=== PATIENT | female | born 1955 | race Caucasian/White ===

== ENCOUNTER 2017-09-05 08:40 | Observation (INO) | payer OTHER ==
[~2017-09-05] VITALS: Ht 157.5 cm; Wt 95.2 kg
[~2017-09-05 08:40] MED LIST: DYAZIDE 37.5-251 EA PO; INDERAL LA160 MG PO
[2017-09-05] MEDS ORDERED: HAIR, SKIN & N1 EACH PO (08:53)
--- NOTE | 2017-09-05 14:01 | NUR ---
09/05/17 1401 Yazmin Sierra 1341 EVEN AND UNLABORED. 1346 PT WOKE UP DENIES PAIN OR NAUSEA. REORIENTED TO PACU. 1358 O2 SAT 100%, O2 REMOVED.
--- NOTE | 2017-09-05 15:24 | NUR ---
PATIENT TO MEDICAL FLOOR FROM PACU AT ABOUT 1455. PATIENT HAD 50ML OF YELLOW COLOR EMESIS. PACU NURSE ADMINISTERED PHENERGAN. PATIENT UP TO BATHROOM WITH 1 PERS ASSIST. PATIENT REPORT BEING A LITTLE DIZZY UPON STANDING AND RESOLVED AFTERWARD. MEPILEX NOTED ON THE NECK THAT IS DRY.DRESSING IN THE LEFT INNER THIGH WITH SOME DRAINAGE. PATIENT DENIES NAUSEA AT THIS TIME AND REPORT DISCOMFORT IN THE THROAT. NO PAIN AT THIS TIME. IV SITE PATENT AND FLUID INFUSING WELL. HOB AT 45DEGREE. CALL LIGHT WITHIN REACH.
--- NOTE | 2017-09-05 16:31 | NUR ---
PATIENT RESTING IN BED. DENIES PAIN AT THIS TIME.NO NAUSEA. IV FLUID INFUSING NO APPARENT DISTRESS.
--- NOTE | 2017-09-05 16:45 | NUR ---
MED REC COMPLETE WITH SAFEWAY REFILL HISTORY.
--- NOTE | 2017-09-05 17:33 | NUR ---
PT IS RESTING IN BED SAFELY WITH CALLLIGHT IN REACH. PT STILL DOES NOT WANT TO EAT ANYTHING.
--- NOTE | 2017-09-05 18:02 | NUR ---
PATIENT REQUESTED PAIN MEDS FOR 5/10 THROAT PAIN. PATIENT WAS MEDICATED. PATIENT DENIES NAUSEA AT THIS TIME. PATIENT IS ABLE TO TAKE SOME JELLO AND JUICE. NO SWELLING IN THE NECK. NO NUMBNESS OR TINGLING.
--- NOTE | 2017-09-05 18:27 | NUR ---
PATIENT HAD DONE WELL THIS PM. BACK FROM SURGERY AT ABOUT 1500. HAD 50ML OF EMESIS ONCE, HAD PHENERGAN ONCE. PATIENT HAD BEEN UP TO BATHROOM ONCE. INCISION ON THE NECK WNL NO SWELLING, MEPILEX IN PLACE, NO DRAINAGE. DRESSING ON THE LEFT INNER THIGH COVERED WITH GAUZE AND HAD SOME DRAINAGE. IV SITE PATIENT AND D5 LR IS INFUSING AT 85ML/HR. VS WNL. REPORT THROAT PAIN AND WAS MEDICATED. DENIES ANY NUMBNESS OR TINGLING.
--- NOTE | 2017-09-05 18:34 | NUR ---
LAST POST OP VITALS TAKEN AND PT WALKED TO BATHROOM, VOIDED, AND RETURNED TO BED. PT NOW RESTING SAFELY WITH CALL LIGHT IN REACH
--- NOTE | 2017-09-05 20:03 | NUR ---
RECEIVED REPORT FROM DAY SHIFT RN. PATIENT IS RESTING IN BED VISITING WITH DAUGHTER. PATIENT DENIES ANY PAIN OR NAUSEA AT THIS TIME. CALL LIGHT IN REACH. NO FURTHER NEEDS NOTED.
--- NOTE | 2017-09-05 21:44 | NUR ---
PATIENT ASSESMENT COMPLETED. PATIENTS EVENING MEDICATIONS GIVEN PER ORDER. PATIENT IS RESTING IN BED VISITING WITH FAMILY. PATIENT IS SITTING UP AT A 45 DEGREE ANGLE IN BED. PATIENT RATES PAIN AT A 4/10. PATIENT DENIES THE NEED FOR ANY PAIN MEDICATION AT THIS TIME. PATIENT DENIES ANY NAUSEA. PATIENT HAS JELLO AT THE BEDISIDE TABLE THAT SHE IS SNACKING ON. PATIENT HAS MEPILEX ON THE FRONT OF HER NECK. MEPILEX IS C/D/I, NO DRAINAGE NOTED. PATIENT HAS PULSE OX IN PLACE, IS ON RA AND READINGS ARE WNL ON PULSE OX. PATIENT IS AAOX3. PATIENT HAS SCDS IN PLACE. PATIENT IS TALKING, LAUGHING, AND SWALLOWING WITH NO ISSUES. LUNG SOUNDS ARE CLEAR. NO FURTHER NEEDS NOTED AT THIS TIME. CALL LIGHT IN REACH.
--- NOTE | 2017-09-05 23:59 | NUR ---
PATIENT CALLED AND REQUESTED ASSISTANCE WITH HER LIGHTS. PATIENTS DRESSING REMAINS C/D/I, NO DRAINAGE PRESENT. PATIENT DENIES THE ARTURO FOR PAIN MEDICAITON AT THIS TIME. PATIENT DENIES ANY NAUSEA. NO FURTHER NEED NOTED. CALL LIGHT IN REACH.
--- NOTE | 2017-09-06 01:16 | NUR ---
PATIENT IS RESTING IN BED WITH EYES CLOSED. BREATHING IS EVEN AND UNLABORED. PULSE OX READINGS ARE WNL. PATIENT REMAINS ON RA
--- NOTE | 2017-09-06 02:48 | NUR ---
PATIENTS VITALS TAKEN AND RECORDED. PATIENTS MEPILEX FELL OFF WHEN PATIENT WAS WALKING TO THE RESTROOM. PATIENT HAS STERI STRIPS IN PLACE AND ARE INTACT. PATIENTS MEPILEX REPLACED. PATIENT DID HAVE A SMALL AMOPUNT OF SEROSANGUINOUS DRAINAGE FROM THE RIGHT SIDE IS NOTED AND ON PATIENTS GOWN. PATIENT DENIES ANY PAIN. PATIENT COMPLAINS OF SORE THROAT. NO ISSUES SWALLOWING. PATIENTS PULSE OX READINGS ARE WNL AND LUNG SOUNDS ARE CLEAR. PATIENT GIVEN ICE CHIPS. PATIENT DENIES ANY NEEDS AT THIS TIME. CALL LIGHT IN REACH.
--- NOTE | 2017-09-06 04:45 | NUR ---
PATIENT RESTING IN BED WITH EYES CLSOED. PULSE OX READINGS ARE WNL. CALL LIGHT IN [facility].
--- NOTE | 2017-09-06 04:56 | NUR ---
PATIENT RESTED WELL THROUGHOUT THE SHIFT. PATIENT IS ON A REG DIET AND WAS ABLE TO TOLERATED JELLO WITH NO COMPLAINTS OF NAUSEA. PATIENT IS ON RA. PATIENT HAS PULSE OX IN PLACE. PATIENT IS WEARING SCDS. PATIENT IS A SBA AND IS STEADY ON HER FEET. PATIENT HAS MEPILEX IN PLACE ON THE FRONT OF HER NECK. PATIENT ALSO HAS A DRESSING IN HER LEFT THIGH. PATIENTS DRESSINGS ARE C/D/I. PATIENT HAS HAD NO AIRWAY ISSUES DURING THE SHIFT. PATIENT HAS REFUSED PAIN MEDICATION DURING THE SHIFT. PATIENT IS A SBA AND IS STEADY ON HER FEET. PATIENT IS AAOX3 AND USES CALL LIGHT APPROPRIATELY.
--- NOTE | 2017-09-06 06:40 | NUR ---
PATIENTS MORNING MEDICATIONS GIVEN PER ORDER. PATIENT RATES PAIN AT A 5/10. PATIENT GIVEN PRN PAIN MEDICATION PER ORDER. PATIENT DENIES ANY NAUSEA. PATIENT DENIES ANY FURTHER NEEDS AT THIS TIME. CALL LIGHT IN REACH.
--- NOTE | 2017-09-06 07:15 | NUR ---
report given from ally mackey. patient awake with hob elevated in bed. updated on plan of care. patient informed me that she is planning on discharging today. no other needs at this time. pain "okay" and patient reports no nausea at this time, but that she has only had jello to eat. she has ordered breakfast.
--- NOTE | 2017-09-06 08:16 | NUR ---
rounded in room. patient sitting up eating breakfast. patient reports swallowing well. no issues with swallow... actually improved from before surgery. patient reports pain improved with the morphine that was given on stunt woman. current pain rating of 2/10. patient sating well. no nausea at this time. instructed to go slow with food. scds currently on. call light within reach. informed patient to call with any needs.
--- NOTE | 2017-09-06 09:30 | NUR ---
ROUNDED WITH DR. POST. CHANGED DRESSING ON LOWER L LEG. PIN SEVERIANO DRAIN PRESENT. DR. POST WANTED NEW STERI STIPS APPLIED TO NECK WOUND. PATIENT TOLERATED ALL DRESSING CHANGES. EDUCATED THE PATIENT ABOUT CONTINUES WOUND CARE THAT PATIENT WILL BE DOING AT HOME.
[2017-09-06] MEDS ORDERED: HYDROCODON-ACE1 EA10 PO (09:35)
[2017-09-06] MEDS ORDERED: MOTRIN IB200 MG PO (09:36)
--- NOTE | 2017-09-06 09:37 | OR ---
[facility] [address] [place], [place] [address] Signed DATE OF OPERATION: 09/05/2017 SURGEON: Jessee Post MD PREOPERATIVE DIAGNOSES: 1. Large (5 cm) symptomatic right thyroid mass. 2. Morbid obesity. 3. Probable abscess, left medial thigh (new onset in past 24 hours). POSTOPERATIVE DIAGNOSES: 1. A 5 cm complex solid and cystic right thyroid mass (symptomatic with tracheal deviation). 2. Left medial thigh soft tissue abscess. PROCEDURES: 1. Right thyroid lobectomy with isthmusectomy (prolonged complicated difficult related to morbid obesity). 2. Incision and drainage and debridement of left medial thigh abscess with placement of the yellow vessel loop drain. ANESTHESIA: General endotracheal, Lennie Wheeler CRNA. INDICATION: This morbidly obese 62-year-old white woman is a patient of Dr. Butch Graham. In 2010, she was noted to have a 2 cm mass of the right thyroid and she did not follow up with additional imaging as planned. She has recently developed cervical dysphagia and occasional airway awareness. Examination shows her to be morbidly obese with a BMI of 40.4 and clinical exam is uncertain as to nodule. A CT scan of the neck was performed which showed a very bulky right thyroid mass with the impact on the airway and probably the esophagus accounting for her cervical dysphagia. She is admitted to undergo right thyroid lobectomy and possible total thyroidectomy depending on pathologic findings. Additionally in the past 24 hours, she developed a "bug bite" in the medial left thigh which is erythematous and on examination shows a firm 50 cent piece subcutaneous nodular change, most likely abscess. I have recommended incision and drainage of that lesion as well as the thyroid operation under the circumstances. She understands the risks of bleeding and infection so forth related to that operation. Special risks of thyroidectomy partial or complete include, but are not limited to Electronically Signed By: JESSEE POST MD 09/06/17 0937 PATIENT NAME: NICOLAS MCCORMICK OPERATIVE REPORT DATE OF : 57 PHYSICIAN: JESSEE POST MD REPORT #: [id number] REPORT IS CONFIDENTIAL AND NOT TO BE RELEASED WITHOUT AUTHORIZATION [facility] [address] [place], [place] [address] Signed bleeding, infection, recurrent laryngeal nerve injury, external laryngeal nerve injury, parathyroid excision which would not be intended and of course failure of the initial diagnosis requiring return to operation for completion thyroidectomy. Understands that she wished to proceed. FINDINGS: The right thyroid lobe was indeed bulky, but soft and spongy. On frozen pathology, there were complex cystic and solid changes within it. Frozen pathology did not confirm malignancy. The final pathology is pending. The right recurrent laryngeal nerve was easily identified and preserved. I saw no evidence of the parathyroid glands having been excised with the lesion. The isthmus was distinct and excised in continuity with the right thyroid lobe. The remaining left lobe was palpably normal, but was not explored extensively by any means. As regard to the left medial thigh lesion, it was consistent with an abscess with some necrotic fat and some purulent material. Gram stain and cultures were obtained. Drainage was accomplished with irrigation and placement of the yellow vessel loop drain as well. DESCRIPTION OF PROCEDURE: The patient was brought to the operating room and given a general endotracheal anesthetic. A Holder catheter was placed and she is oriented. Preoperative antibiotic Ancef was given. Sequential compression device stockings were used and heparin was not subcutaneously administered on this occasion. The neck was placed in slight extension. Given her plethoric body habitus, short neck, fat neck and so forth, the natural skin crease was a bit higher than usual. Nevertheless, it was deemed the optimal site for incision. After sterile preparation of the anterior neck and upper torso, a transverse incision was made along the line of skin crease in the neck and dissection carried through the dermis with sharp and electrocautery dissection. Thick neck fatty tissue was divided with electrocautery as well as the platysmal layer. Superior and inferior flaps were developed with a blunt electrocautery dissection. The bulky right thyroid lobe could be seen beneath the strap muscles. Strap muscles were divided in the avascular plane the right and left strap muscles and revealing the underlying thyroid gland. It was bulky and quite soft and extended low in the neck and a bit behind the clavicle. With various manipulations, it was easily manipulated out of the neck. However, much of the bulk and nodule well mobilized from the peritracheal space. Lobular changes in the superior pole were noted as well. Sharp and blunt dissection were used to separate the lateral attachments and 4-0 silk ties used to divide the larger thyroidal veins. The upper pole was dissected with meticulous care individually ligated in the superior polar vessels using 4-0 silk ties. The upper portion of the right thyroid lobe extended posteriorly a bit as much more as the bulky Electronically Signed By: JESSEE POST MD 09/06/17 0937 PATIENT NAME: NICOLAS MCCORMICK OPERATIVE REPORT DATE OF : 57 PHYSICIAN: JESSEE POST MD REPORT #: [id number] REPORT IS CONFIDENTIAL AND NOT TO BE RELEASED WITHOUT AUTHORIZATION [place] [id number] Signed right lower pole nodular change. Ultimately, this was mobilized to the midline. Multiple fluoro silk ties were used to secure the vascular pedicles to the thyroid in the inferior, superior and mid portions. The recurrent laryngeal nerve was identified and unharmed. Ultimately, the thyroid could be visualized and mobilized to the ligament of Lopez, which was freed with blunt and electrocautery dissection allowing for complete mobilization of the right lobe and isthmus. Hemostats were applied to the junction of the left thyroid lobe and the isthmus and the isthmus divided. The thyroid remnants were secured with 3-0 silk suture. Irrigation was undertaken. The area was gently packed at that point. Some hemoclips had been used during the course of dissection as well. The specimen was sent to the pathologist in due course and was found to be benign without sign of obvious malignancy. Hemostasis was assured after irrigation of the wound. Some Bobbi was applied to the superior and inferior aspects and the midline, strap muscles reapproximated with interrupted 2-0 Vicryl. The platysmal layers were reapproximated with interrupted 2-0 Vicryl and skin closed with running subcuticular 4-0 Vicryl. Steri-Strips were applied. While waiting for the pathology report, the drapes were taken down and attention was turned to the left medial thigh. The area in question was prepared with a Betadine solution and draped sterilely. A small incision was made in the area of maximal erythema and hemostat insinuated into the soft tissue allowing for egress of purulent material. There was no foul odor. Gram stain and cultures were performed. Breakdown of loculations of this abscess which measured about the size of a silver dollar was undertaken. A counter incision was made and a yellow vessel loop passed and tied in place. Irrigation was undertaken with saline solution. Ultimately, the gauze was applied to the wound as was tape. By this point, the frozen pathology returned confirming the lesion to be benign at this point. The Mepilex silver sponge dressing had been applied to the wound as were Steri-Strips. She was ultimately extubated and transferred to the recovery room in good condition having suffered no known complications. Sponge, needle, and instrument counts were reported as correct x3. Jessee Post MD Electronically Signed By: JESSEE POST MD 09/06/17 0937 PATIENT NAME: NICOLAS MCCORMICK OPERATIVE REPORT DATE OF : 57 PHYSICIAN: JESSEE POST MD REPORT #: [id number] REPORT IS CONFIDENTIAL AND NOT TO BE RELEASED WITHOUT AUTHORIZATION [address] [address] Signed BARRY/FREDDY /[id number] cc: Butch Graham DO Electronically Signed By: JESSEE POST MD 09/06/17 0937 PATIENT NAME: NICOLAS MCCORMICK OPERATIVE REPORT DATE OF : 57 PHYSICIAN: JESSEE POST MD REPORT #: [id number] REPORT IS CONFIDENTIAL AND NOT TO BE RELEASED WITHOUT AUTHORIZATION
== END 2017-09-06 10:31 | disposition home or self-care (01) ==
LOC: DS 08:40 → MS 08:41 → DS 08:45 → MS 14:45 → DS 09-06 10:30 → MS 09-06 10:31 → DS 09-06 10:31
PROVIDERS: ADMIT Surgery
PROC: 0GTH0ZZ Resection of Right Thyroid Gland Lobe, Open Approach (ICD-10-PCS; principal; 2017-09-05 09:45)
PROC: 0H9JXZZ Drainage of Left Upper Leg Skin, External Approach (ICD-10-PCS; 2017-09-05 09:45)
DX: E04.9 Nontoxic goiter, unspecified (principal); E66.01 Morbid (severe) obesity due to excess calories; L02.416 Cutaneous abscess of left lower limb; I10 Essential (primary) hypertension; E06.3 Autoimmune thyroiditis; Z68.41 Body mass index [BMI] 40.0-44.9, adult; Z79.1 Long term (current) use of non-steroidal anti-inflammatories (NSAID); Z79.51 Long term (current) use of inhaled steroids; Z79.899 Other long term (current) drug therapy; Z87.891 Personal history of nicotine dependence
CPT/HCPCS: 00320; 87070; 87075; 87077; 87186; 87205; 96361; 96374; 96375; 96376; G0378; J0330; J0690; J2250; J2270; J2405; J2550; J2704; J3010; J7120

== ENCOUNTER 2018-04-03 12:55 | Day surgery (SDC) | payer OTHER ==
[~2018-04-03] VITALS: Ht 157.5 cm; Wt 100.2 kg
[~2018-04-03 12:55] MED LIST changes: +24 HOUR ALLERG9.9 ML NAS; +HAIR, SKIN & N1 EACH PO; +HYDROCODON-ACE1 EA10 PO; +MELOXICAM7.5 MG PO; +MOTRIN IB200 MG PO
[2018-04-03] MEDS ORDERED: OMEPRAZOLE20 MG PO (13:16)
[2018-04-03] MEDS ORDERED: EXCEDRIN MIGRA1 EAC2 PO (13:18)
--- NOTE | 2018-04-03 16:04 | NUR ---
04/03/18 1604 Shakira Montes 1552 PATIENT ARRIVES TO PACU SLEEPING, OPENS EYES WITH VERBAL STIMULI, THEN BACK TO SLEEP. RESP EVEN AND UNLABORED, NC AT 4 LITERS ON ARRIVAL, TURNED OFF, SATS 95% ON ROOM AIR. PASSING GAS.
--- NOTE | 2018-04-03 18:35 | OR ---
[facility] [address] [place], [place] [address] Signed DATE OF OPERATION: 04/03/2018 SURGEON: Jessee Post MD PREOPERATIVE DIAGNOSES: 1. Cervical dysphagia. 2. History of thyroid lobectomy for large right thyroid lobe. POSTOPERATIVE DIAGNOSIS: Apparent stricture like abnormality at 22 cm. Unable to pass scope beyond. PROCEDURE PERFORMED: Esophagoscopy with biopsy. ANESTHESIA: Intravenous sedation with fentanyl 100 mcg and Versed 4 mg. INDICATIONS FOR PROCEDURE: This obese 62-year-old white woman is a patient of Dr. Butch Ledesma. She was found to have a right thyroid mass and cervical dysphagia at that time. Right thyroid lobectomy was performed on September 05, 2017. Pathology report showed only thyroiditis, no sign of malignancy. She notes that she is still having dysphagia and feeling like she "gets choked in." She has regurgitated food from [id number] due to dysphagia in this area. She identifies this as the sternal notch more or less. She has been empirically treated with PPI medication, which she thought was helpful. She is here for upper endoscopy to better characterize the problem. Of special note, she underwent video esophagram by Dr. Castro in January of 2018, which showed a "kink" in the more proximal esophagus, but no actual stricture or other abnormality of the lumen of the esophagus. She understands the risks of bleeding, infection, and perforation related to upper endoscopy at this time and wished to proceed. FINDINGS: The vocal cords appeared normal. There was some plethoric soft tissue in the area, but no sign of neoplasm. The scope was advanced in the esophagus, but could not advance beyond about 22 cm from the incisors. A smaller scope was obtained with similar purpose, but the scope was not allowed to pass this area. Biopsies were taken of this area, though there was no sign of endoluminal lesion. One wonders whether there may be an extrinsic lesion accounting for this problem. DESCRIPTION OF PROCEDURE: Electronically Signed By: JESSEE POST MD 04/03/18 1835 PATIENT NAME: NICOLAS MCCORMICK OPERATIVE REPORT DATE OF : 57 REPORT #: [id number] PHYSICIAN: JESSEE POST MD PCP: BUTCH LEDESMA DO REPORT IS CONFIDENTIAL AND NOT TO BE RELEASED WITHOUT AUTHORIZATION [facility] [address] [place] [id number] Signed The patient was brought to the endoscopy suite, given topical Hurricaine spray hypopharyngeal anesthesia, and placed in lateral decubitus position. A bite block was placed. An Olympus video upper endoscope was passed in the hypopharynx. The vocal cords appeared normal. The scope was easily passed in the esophagus, but could not pass beyond about 22 cm. The lumen appeared wide open. There was no sign of exophytic lesion or other clear abnormality. Careful and steady pressure in the region of the area of apparent stricture did not allow for placement of the scope and the scope was carefully withdrawn and removed. One of the older Olympus scope, which has a narrower diameter tip for upper endoscopy was obtained and in a similar way passed into the area in question at 22 cm from the incisors. It too would not pass through the strictured area. Biopsies were taken of the strictured area proximally and at the site itself. The scope was then withdrawn, removed, and the patient was taken to the recovery room in good condition. CONCLUDING DIAGNOSIS: stricture than clinically apparent on video esophagram. As the area will not allow passage of the scope, she should maintain a soft diet for the time being. A CT scan may be most appropriate to better ascertain for extrinsic lesion accounting for symptoms. Biopsies will be pending with the possibility, though not probability of eosinophilic esophagitis. MD BARRY Velez/MODL /[id number] cc: Butch Ledesma DO Copies: BUTCH LEDESMA DO ~ Electronically Signed By: JESSEE POST MD 04/03/18 1835 PATIENT NAME: NICOLAS MCCORMICK OPERATIVE REPORT DATE OF : 57 REPORT #: [id number] PHYSICIAN: JESSEE POST MD PCP: BUTCH LEDESMA DO REPORT IS CONFIDENTIAL AND NOT TO BE RELEASED WITHOUT AUTHORIZATION
== END 2018-04-03 16:30 | disposition home or self-care (01) ==
LOC: OPS 12:55 → DS 12:55 → OPS 14:00
PROVIDERS: Surgery
PROC: 0DB58ZX Excision of Esophagus, Via Natural or Artificial Opening Endoscopic, Diagnostic (ICD-10-PCS; principal; 2018-04-03 14:00)
DX: K20.9 Esophagitis, unspecified (principal); K22.2 Esophageal obstruction; E89.0 Postprocedural hypothyroidism; E66.01 Morbid (severe) obesity due to excess calories; Z79.890 Hormone replacement therapy; Z68.41 Body mass index [BMI] 40.0-44.9, adult
CPT/HCPCS: 99153; G0500; J2250; J3010

== ENCOUNTER 2018-07-01 09:45 | Day surgery (SDC) | payer OTHER ==
[~2018-07-01] VITALS: Ht 157.5 cm; Wt 90.7 kg
--- NOTE | ~2018-07-01 | OR ---
[facility] [address] [place], [place] [address] Draft DATE OF OPERATION: 07/01/2018 SURGEON: Jessee Post MD PREOPERATIVE DIAGNOSES: 1. Esophageal dysphagia. 2. Esophageal dilation to 36-Beninese with Tajik over the wire fluoroscopic dilation system May 08, 2018. 3. Persistent episodic dysphagia. POSTOPERATIVE DIAGNOSES: 1. Esophageal dysphagia. 2. Esophageal dilation to #36-Beninese with Tajik over the wire fluoroscopic dilation system May 08, 2018. 3. Persistent episodic dysphagia. PROCEDURE PERFORMED: 1. Esophagogastroduodenoscopy. 2. Esophageal dilation Tajik over the wire technique with fluoroscopic control, from 36-Beninese to 42-Beninese. 3. Surgeon directed fluoroscopy. ANESTHESIA: Intravenous sedation, propofol infusion. ANESTHESIOLOGIST: Myra Cali CRNA. INDICATION OF THE PROCEDURE: This 63-year-old white woman is a patient Dr. Ledesma and known to me from the past having undergone right thyroid lobectomy for a very large thyroid lobe thought to be causing dysphagia. Resection went without problem, but dysphagia persisted. She underwent upper endoscopy. She is noted to have a marked stricture at 22 cm from the incisors. It was enough that an endoscope could not pass through it. On May 08, 2018, she underwent sequential dilation with an Tajik over the wire dilation system using fluoroscopic control. Dilation was undertaken to 36-Beninese, which markedly improved her swallowing problems. At 36-Beninese, she did have mucosal disruption as would be expected for dilation and she has been allowed to heal this completely. She has markedly improved in her swallowing problems, but still has PATIENT NAME: MYRA MCCORMICK OPERATIVE REPORT DATE OF : 57 REPORT #: [id number] PHYSICIAN: JESSEE POST MD PCP: BUTCH LEDESMA DO REPORT IS CONFIDENTIAL AND NOT TO BE RELEASED WITHOUT AUTHORIZATION [facility] [address] [place], [place] [address] Draft occasions of dysphagia. She is here now for additional dilation as appropriate as the mucosa should have healed well by now. She understands the risks remain of bleeding, infection, and perforation, related to dilation, and she wished to proceed. FINDINGS: The area of dilation had complete mucosal healing. There was no obvious stricture at the site. The stomach and duodenum were reasonably normal otherwise. Dilation was undertaken from 36-Beninese to 42-Beninese with Tajik over the wire dilation system with fluoroscopic control once again. Subsequent evaluation showed a small amount of blood in the area of dilation, but no large mucosal disruption and no additional dilation was deemed advisable or necessary at this time. DESCRIPTION OF PROCEDURE: The patient was brought to the operating room, placed in lateral decubitus position left side down and given intravenous sedation with a propofol infusional technique with full cardiopulmonary monitoring by the psychologist industrial organizational. An Olympus video upper endoscope was passed in the hypopharynx after placement of a bite block. The vocal cords appeared normal. The scope was advanced to the esophagus and at 22 cm the area of prior dilation was found to be with complete healing of the mucosa. The scope was advanced beyond this without impediment to the stomach, which was then insufflated with air. Rugal folds appeared normal. Pylorus was normal. The scope was passed through into the duodenum, which was also normal. Scope was withdrawn and retroflexed view undertaken showing no sign of pathologic abnormality at the GE junction. The scope was withdrawn once again throughout the esophagus showing no sign of other abnormality. The area of prior dilation at 22 cm was visualized and found to have complete mucosal healing as previously noted. The scope was once again advanced into the stomach and the Tajik over the wire device passed through the operating channel of the scope and positioned in the antrum of the stomach. The scope was carefully withdrawn, and the wire stabilized into position. The fluoroscope was used to ascertain the wire remained in the stomach. As the last dilation level was 36-Beninese, this was the beginning dilation on this occasion. A 36-Beninese over the wire dilator was passed over the wire, lubricated and carefully passed under fluoroscopic control down the wire without impediment. It was withdrawn, wire stabilized. Sequential dilation was undertaken with additional dilating devices up to 42-Beninese. There was a bit of resistance with the 42-Beninese dilator and therefore dilation was not pushed past this level. The wire was removed and scope reintroduced, and showed a small amount of blood in the area of previous dilation, but no sign of large mucosal tear or anything of that sort. There was no sign of complication. Photographs were again taken. The scope was removed, and the patient taken to recovery room in good condition after awakening from sedation. CONCLDING DIAGNOSIS: PATIENT NAME: MYRA MCCORMICK OPERATIVE REPORT DATE OF : 57 REPORT #: [id number] PHYSICIAN: JESSEE POST MD PCP: BUTCH LEDESMA DO REPORT IS CONFIDENTIAL AND NOT TO BE RELEASED WITHOUT AUTHORIZATION [facility] [address] [place], [place] [address] Draft Successful phase two dilation of advanced esophageal stricture at 22 cm. PLAN: It is imperative that she remain on Prilosec 20 mg daily. We will see her back in about 6 months (sooner if needed). MD BARRY Velez/FREDDY /[id number] cc: Butch Ledesma DO Copies: BUTCH LEDESMA DO ~ PATIENT NAME: MYRA MCCORMICK OPERATIVE REPORT DATE OF : 57 REPORT #: [id number] PHYSICIAN: JESSEE POST MD PCP: BUTCH LEDESMA DO REPORT IS CONFIDENTIAL AND NOT TO BE RELEASED WITHOUT AUTHORIZATION
[~2018-07-01 09:45] MED LIST changes: +CARAFATE1 GM/10 ML PO; +EXCEDRIN MIGRA1 EAC2 PO; +NEXIUM10 MG PO; +OMEPRAZOLE20 MG PO; +ONCE DAILY1 EACH PO; +PREVACID30 M1 PO
--- NOTE | 2018-07-01 12:07 | NUR ---
07/01/18 1207 Shelia Herman 1154 PT ARRIVED IN PACU SLEEPY WITH NO C/O'S. 1155 OXYGEN DECREASED TO 1L VIA NC WITH SATS 97%. 1205 OXYGEN REMOVED. SATS 96% ON RA.
== END 2018-07-01 12:24 | disposition home or self-care (01) ==
LOC: OPS 09:45 → DS 09:45 → OPS 11:00 → DS 11:00 → OPS 12:24
PROVIDERS: Surgery
PROC: 0D758ZZ Dilation of Esophagus, Via Natural or Artificial Opening Endoscopic (ICD-10-PCS; principal; 2018-07-01 11:00)
DX: K22.2 Esophageal obstruction (principal); E04.1 Nontoxic single thyroid nodule; E66.3 Overweight; E03.9 Hypothyroidism, unspecified; K44.9 Diaphragmatic hernia without obstruction or gangrene; K59.00 Constipation, unspecified; K21.9 Gastro-esophageal reflux disease without esophagitis; Z87.891 Personal history of nicotine dependence; Z79.890 Hormone replacement therapy; Z98.890 Other specified postprocedural states; Z68.41 Body mass index [BMI] 40.0-44.9, adult; Z79.82 Long term (current) use of aspirin; Z79.1 Long term (current) use of non-steroidal anti-inflammatories (NSAID); Z79.899 Other long term (current) drug therapy
CPT/HCPCS: 76000; J2250; J2704; J3010; J7120

== ENCOUNTER 2019-02-17 17:17 | Emergency (ER) | payer OTHER ==
[~2019-02-17] VITALS: Ht 157.5 cm; Wt 90.7 kg
[2019-02-17] MEDS ORDERED: MELOXICAM7.5 MG PO (18:09)
== END 2019-02-17 18:14 | disposition home or self-care (01) ==
LOC: ED 17:17
DX: M25.552 Pain in left hip (principal); I10 Essential (primary) hypertension; K21.9 Gastro-esophageal reflux disease without esophagitis; Z79.899 Other long term (current) drug therapy; Z87.891 Personal history of nicotine dependence
CPT/HCPCS: 73502; 99283-25

== ENCOUNTER 2019-11-23 19:45 | Observation (INO) | payer OTHER ==
[~2019-11-23] VITALS: Ht 157.5 cm; Wt 95.1 kg
[~2019-11-23 19:45] MED LIST changes: -OMEPRAZOLE20 MG PO; +PRILOSEC OTC20 MG PO
[2019-11-23] MEDS ORDERED: LEVOTHYROXINE50 MCG PO (20:12)
[2019-11-23] MEDS ORDERED: PHENTERMINE H37.5 MG PO (20:14)
--- NOTE | 2019-11-23 23:00 | NUR ---
PT TO ROOM VIA STRETCHER FROM ED. PT IS ALERT AND ORIENTED. TRANSFERRED SELF FROM STRETCHER TO BED. UP TO BR WITH MINIMAL ASSIST TO VOID. NO C/O PAIN OR NAUSEA. CURRENTLY USING TISSUE AND EMESIS BAG TO CONTROL SECRETIONS. VSS. RA. ORIENTED TO ROOM AND NURSE CALL LIGHT. NO QUESTIONS OR CONCERNS AT THIS TIME. DAUGHTER IN ROOM AND PLANS ON SPENDING THE NIGHT.
--- NOTE | 2019-11-24 00:10 | NUR ---
CALL LIGHT ANSWERED. PT UP TO BR WITH MINIMAL SBA. BACK TO BED, LEXA WELL. NO C/O PAIN OR NAUSEA. DAUGHTER IN ROOM. IVF INFUSING.
--- NOTE | 2019-11-24 03:47 | NUR ---
PT RESTING IN BED WITH EYES CLOSED, NO APPARENT DISTRESS. RESPIRATIONS EVEN AND UNLABORED. CPOX IN PLACE, SPO2 96% ON RA, HR 57.
--- NOTE | 2019-11-24 08:15 | NUR ---
PATIENT SLEEPING IN BED. WILL CHECK BACK SOON.
--- NOTE | 2019-11-24 08:58 | NUR ---
MED REC COMPLETE
[2019-11-24] MEDS ORDERED: MOBIC7.5 MG PO (08:59)
--- NOTE | 2019-11-25 06:08 | CONS ---
[facility] [address] [place], [place] [address] Signed DATE OF CONSULTATION: 11/24/2019 CHIEF COMPLAINT: Esophageal foreign body. 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 She has had a history of hiatal hernia with acid reflux and stricture. She has had it dilated twice. She has had the food stuck at least on two occasions. Her daughter tells me it has been progressively getting worse again. Last night, she had a piece of chicken stuck and came to the emergency room. We admitted her to the floor. Subsequently, the chicken passed through. I have been asked to see her as a general surgeon on-call. PAST MEDICAL HISTORY: Hypertension, hypothyroidism, esophageal stricture, hiatal hernia, gastroesophageal reflux disease, and mitral valve prolapse. PAST SURGICAL HISTORY: EGD with dilation x2 with Dr. Jones, hemithyroidectomy for benign nodule and full hysterectomy in her 30s for probable uterine cancer. SOCIAL HISTORY: She quit smoking over 30 years ago. She does not drink. She is and has two daughters, both at [phone]. 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 She prefers the [facility], Dr. Stas Millan is her primary care provider. FAMILY HISTORY: Mom had uterine cancer and dad is still alive. Her daughter had uterine cancer. REVIEW OF SYSTEMS: She had 10 systems reviewed and seems to be healthy otherwise other than her obesity. ALLERGIES: None. MEDICATIONS: Meloxicam, propranolol, Dyazide, omeprazole, multivitamin, levothyroxine, and phentermine. PHYSICAL EXAMINATION: VITAL SIGNS: Her blood pressure is 135/63, heart rate 59, respiratory rate 18, Electronically Signed By: XAVIER POND MD 11/25/19 0608 PATIENT NAME: MYRA MCCORMICK CONSULTATION DATE OF : 57 REPORT #: [id number] PHYSICIAN: XAVIER POND MD PCP: PENG CRYSTAL MD REPORT IS CONFIDENTIAL AND NOT TO BE RELEASED WITHOUT AUTHORIZATION [facility] [address] [place], [place] [address] Signed temperature is 98.1. She is 97% on room air. She is 5 feet 2 inches at 95 kg. GENERAL: Myra is a 64-year-old female, lying supine in her hospital bed with her daughter and her nurse at the bedside. She is alert, awake, and interactive. She controls her saliva quite well. She has no shortness of breath and talks in full sentences. LUNGS: Clear to auscultation bilaterally. HEART: Regular rate and rhythm. ABDOMEN: Obese, but soft and nontender. LABORATORY DATA: Her white blood cell count is 9.7, hemoglobin 17, neutrophils 64. BUN 25, creatinine 0.9, potassium 3.4. Liver function tests are negative. Albumin is 4.3. RADIOGRAPHIC STUDIES: None. ASSESSMENT AND PLAN: Myra is a 64-year-old female, who presents with a recurrent esophageal stricture associated with hiatal hernia and acid reflux. She feels that the chicken is gone through currently, so we are going to give her some water to drink. If that goes well, we will be discharging her to home with followup in the office. She will need a barium swallow and a repeat EGD with dilation. I also explained to Myra that she is a candidate for a fundoplication given her above situation. I have brochures in the office and I will be able to go over that with her in more detail. I have reviewed this with Myra and her daughter. They have expressed understanding and agreed with above plan. Xavier Pond MD ALB/MODL /[id number] cc: MD Peng Coppola MD Copies: XAVIER POND MD Electronically Signed By: XAVIER POND MD 11/25/19 0608 PATIENT NAME: MYRA MCCORMICK CONSULTATION DATE OF : 57 REPORT #: [id number] PHYSICIAN: XAVIER POND MD PCP: PENG CRYSTAL MD REPORT IS CONFIDENTIAL AND NOT TO BE RELEASED WITHOUT AUTHORIZATION [facility] [address] [place], [place] [address] Signed ~ Electronically Signed By: XAVIER POND MD 11/25/19 0608 PATIENT NAME: MYRA MCCORMICK CONSULTATION DATE OF : 57 REPORT #: [id number] PHYSICIAN: XAVIER POND MD PCP: PENG CRYSTAL MD REPORT IS CONFIDENTIAL AND NOT TO BE RELEASED WITHOUT AUTHORIZATION
== END 2019-11-24 09:15 | disposition home or self-care (01) ==
LOC: ED 19:45 → MS 19:47 → ED 20:59 → MS 11-24 09:15
PROVIDERS: ADMIT Colon & Rectal Surgery
DX: T18.128A Food in esophagus causing other injury, initial encounter (principal); K22.2 Esophageal obstruction; K21.9 Gastro-esophageal reflux disease without esophagitis; I10 Essential (primary) hypertension; I34.1 Nonrheumatic mitral (valve) prolapse; E89.0 Postprocedural hypothyroidism; Z87.891 Personal history of nicotine dependence; Z79.899 Other long term (current) drug therapy
CPT/HCPCS: 36415; 80053; 85025; 94762; 99284; G0378; J7121

== ENCOUNTER 2020-03-17 06:25 | Day surgery (SDC) | payer OTHER ==
[~2020-03-17] VITALS: Ht 154.9 cm; Wt 92.5 kg
[~2020-03-17 06:25] MED LIST changes: +LEVOTHYROXINE50 MCG PO; +MOBIC7.5 MG PO; +PHENTERMINE H37.5 MG PO; +VITAMIN B-12100 MCG PO
[2020-03-17] MEDS ORDERED: D3-200050 MCG PO (06:35)
--- NOTE | 2020-03-17 08:00 | NUR ---
03/17/20 0800 Maritza Davis 0755-PATIENT ARRIVED TO PACU ON 4L NC PLACED ON 2L RR EVEN. PATIENT COUGHING HOB ELEVATED REACTIVE TO VERBAL STIMULI OPENING EYES DENIES PAIN OR NAUSEA. IVF INFUSING. SR.
--- NOTE | 2020-03-17 11:08 | OR ---
[facility] [address] [place], [place] [address] Signed DATE OF OPERATION: 03/17/2020 SURGEON: Jessee Post MD PREOPERATIVE DIAGNOSES: 1. Recurrent dysphagia. 2. History of sequential esophageal dilation in 2018 at 22 cm for significant esophageal stricture. POSTOPERATIVE DIAGNOSES: 1. Esophageal stricture at 22 cm dilated ultimately to 39-Ukrainian with Algerian wlqs-ahs-wfrm dilator system with fluoroscopic control. PROCEDURE: 1. Esophagogastroduodenoscopy. 2. Esophageal dilation with fluoroscopic control Algerian bcld-mph-uwqo sequential dilation (27, 33 and 39-Ukrainian). ANESTHESIA: Propofol infusion. Gera Ramírez CRNA. INDICATION: This 64-year-old morbidly obese white woman is a patient of Peng Crystal MD and underwent esophageal dilation by la sequentially in 2018. At that time, she had a very tight stricture at 22 cm. The dilation was undertaken with Algerian ypgg-xnv-rgna dilation system using fluoroscopic control. She has maintained PPI medication since that time. The biopsy of the stricture previously showed it to be benign. She has developed in the past several months recurrent dysphagia and was seen in the emergency room evaluated by Dr. Baum for esophageal obstruction, which resolved on its own. Due to the COVID-19 pandemic immediate dilation back in November could not be undertaken. She is now here for esophageal dilation. She does have dysphagia on a routine basis. She understands the risks of dilation, particularly given her tight stricture in the past including risks of perforation, bleeding, and so on. She understands and she wished to proceed. FINDINGS: Upper endoscopy confirmed the stricture to once again be a 22 cm from the incisors. The stricture was typical of a reflux-related structure more likely than not, no evidence of the eosinophilic esophagitis per se. The stricture initially was somewhat resistant to Electronically Signed By: JESSEE POST MD 03/17/20 1108 PATIENT NAME: NICOLAS MCCORMICK OPERATIVE REPORT DATE OF : 57 REPORT #: [id number] PHYSICIAN: JESSEE POST MD PCP: PENG CRYSTAL MD REPORT IS CONFIDENTIAL AND NOT TO BE RELEASED WITHOUT AUTHORIZATION [facility] [address] [place], [place] [address] Signed passage of the endoscope, but it did pass through with gentle pressure and evaluation elsewhere showed the stomach, pylorus and duodenum to be normal. Retroflexed view showed a poor flap valve. Dilation was undertaken with an Algerian ikgq-dtb-pvnw dilator system sequentially from 27 to 33 to 39-Ukrainian. This was under fluoroscopic control and was done as safely as possible. She tolerated procedure well. Post dilation did show mucosal disruption as expected. No sign of complication however. DESCRIPTION OF PROCEDURE: The patient was brought to the surgical endoscopy suite OR room #3, placed in lateral decubitus position. She was given intravenous sedation with propofol infusional technique. A bite block was placed. An Olympus video upper endoscope was passed in the hypopharynx hypopharynx and arytenoid processes. The scope was advanced into the esophagus and at approximately 22 cm, a benign appearing stricture was once again noted. It did not readily accept the endoscope initially, but then was passed beyond that without problem. The remaining esophagus did show mild distal esophagitis. No sign of Shaffer's epithelium. Scope was advanced to the stomach, which was insufflated with air. Rugal folds were normal as was the pylorus. The scope was passed through into the duodenum. Duodenum was normal. Scope was withdrawn and retroflexed view undertaken showing a poor flap valve at the GE junction. The scope was advanced to the pylorus once again in a coil-spring tipped wire passed through the operating channel of the scope. Fluoroscopy was used to affirm the position of the wire and the scope was carefully withdrawn leaving the wire in place. Sequential dilation with an Algerian utwk-yjw-ojxg dilator system was undertaken initially with a 27-Ukrainian, subsequently a 33-Ukrainian and ultimately a 39-Ukrainian dilator. This was all done under fluoroscopic control affirming the wire to be in appropriate position between each dilation. The wire was then removed. The scope was reintroduced and the examination of the dilation area undertaken showing mucosal disruption as would be expected. It showed no evidence of crepitus of the neck or other abnormalities. Scope was removed and the patient was ultimately allowed to emerge from sedation, taken to the recovery room in good condition. She has no chest pain postprocedure and no sign of complication. ASSESSMENT: Successful dilation of stricture at 22 cm. A poor flap valve stricture likely related to reflux. PLAN: She will be started on Carafate slurry q.i.d. Continue with her PPI medication and will see us back in the office in 4 to 6 weeks to assess her progress with dysphagia. She will maintain a soft diet for at least 72 hours. Electronically Signed By: JESSEE POST MD 03/17/20 1108 PATIENT NAME: NICOLAS MCCORMICK OPERATIVE REPORT DATE OF : 57 REPORT #: [id number] PHYSICIAN: JESSEE POST MD PCP: PENG CRYSTAL MD REPORT IS CONFIDENTIAL AND NOT TO BE RELEASED WITHOUT AUTHORIZATION [facility] [address] [place], [place] [address] Signed MD BARRY Velez/FREDDY /[id number] cc: Peng Crystal MD Copies: ~ Electronically Signed By: JESSEE POST MD 03/17/20 1108 PATIENT NAME: NICOLAS MCCORMICK OPERATIVE REPORT DATE OF : 57 REPORT #: [id number] PHYSICIAN: JESSEE POST MD PCP: PENG CRYSTAL MD REPORT IS CONFIDENTIAL AND NOT TO BE RELEASED WITHOUT AUTHORIZATION
--- NOTE | 2020-03-18 11:38 | EKG ---
[facility] [address] [facility] [place] [address] Signed Sinus bradycardia Voltage criteria for left ventricular hypertrophy Abnormal ECG When compared with ECG of 07-MAY-2018 08:27, T wave inversion now evident in Inferior leads Confirmed by MEKA WALTERS MD ([id number]) on 03/18/2020 11:38:04 AM Electronically Signed By: MEKA WALTERS MD 03/18/20 1138 PATIENT NAME: NICOLAS MCCORMICK Electrocardiogram DATE OF : 57 PHYSICIAN: MEKA WALTERS MD REPORT #: [id number] REPORT IS CONFIDENTIAL AND NOT TO BE RELEASED WITHOUT AUTHORIZATION
== END 2020-03-17 08:35 | disposition home or self-care (01) ==
LOC: OPS 06:25 → DS 06:25 → OPS 06:45 → DS 06:45 → OPS 08:35
PROVIDERS: Surgery
PROC: 0DJ08ZZ Inspection of Upper Intestinal Tract, Via Natural or Artificial Opening Endoscopic (ICD-10-PCS; 2020-03-17)
PROC: 0D758ZZ Dilation of Esophagus, Via Natural or Artificial Opening Endoscopic (ICD-10-PCS; principal; 2020-03-17 06:45)
DX: K22.2 Esophageal obstruction (principal); K21.0 Gastro-esophageal reflux disease with esophagitis; E03.9 Hypothyroidism, unspecified; G43.909 Migraine, unspecified, not intractable, without status migrainosus; Z79.899 Other long term (current) drug therapy; Z87.891 Personal history of nicotine dependence
CPT/HCPCS: 76000; 93005; 93010; J2704; J7121

== ENCOUNTER 2021-01-19 06:20 | Day surgery (SDC) | payer OTHER ==
[~2021-01-19] VITALS: Ht 154.9 cm; Wt 90.9 kg
[~2021-01-19 06:20] MED LIST changes: +D3-200050 MCG PO; +LEVOTHYROXINE50 MC1 PO
--- NOTE | 2021-01-19 08:09 | NUR ---
01/19/21 0809 Shakira Montes 0800 PATIENT ARRIVES TO PACU SLEEPING, AWAKENS WITH VERBAL STIMULI, BUT VERY DROWSY. RESP EVEN AND UNLABORED, COARSE COUGH, NC AT 6 LITERS, DECREASED TO 4L. 0805 PATIENT AWAKE OFF/ON, ASKING QUESTIONS APPROPRIATELY. RESP EVEN AND UNLABORED, NC TURNED OFF. PATIENT DENIES PAIN AND NAUSEA.
--- NOTE | 2021-01-19 10:07 | NUR ---
PT ALERT, ORIENTED AND SUPPORTED BY HER DAUGHTER. PT HAS HAD PROCEDURE BEFORE AND FEELS INFORMED. ALL QUESTIONS ASKED ANSWERED, DR POST IN TO SEE PT. GAVE BLESSING, WILL FOLLOW NEEDED
--- NOTE | 2021-01-22 12:23 | OR ---
[facility] [address] [place], [place] [address] Signed DATE OF OPERATION: 01/19/2021 SURGEON: Jessee Post MD PREOPERATIVE DIAGNOSIS: Recurrent dysphagia related to esophageal stricture at 22 cm. POSTOPERATIVE DIAGNOSIS: Recurrent dysphagia related to esophageal stricture at 22 cm. PROCEDURES: 1. Esophagogastroduodenoscopy. 2. Endoscopic balloon dilation 60-Papua [place] Guinean (20 mm) at psi of 50. ANESTHESIA: Intravenous sedation, propofol infusion; Gera Ramírez CRNA. INDICATIONS: This 65-year-old white woman is a patient of Dr. Crystal, and is well known to me from the past. She was noted to have what seemed to be cervical or upper esophageal dysphagia and is found to have a 5 cm thyroid nodule, which was resected in 2017. This did not really improve her dysphagia as I thought it might. The lesion was benign. She underwent upper endoscopy in March of 2018 showing a very dense stricture in the upper esophagus at about 22 cm from the incisors. She subsequently underwent fluoroscopic sequential dilation on May 08, 2018 to 36-P[place]ua [place]inean. Subsequent dilation was performed on July 01, 2018 to 42-[place]inean with fluoroscopic control and subsequent dilation on March 17, 2020 to 39-P[place]inean with good clinical result. Her most recent dilation was on October 07, 2020 with a balloon dilator to 60-P[place]ua [place]inean (20 mm) at 50 psi. She has been doing well with regimen of Prilosec b.i.d. She has recently had a bit more dysphagia and I have recommended short-term interval upper endoscopy and probable repeat esophageal dilation. She understands the risks of bleeding, infection, and perforation related and wished to proceed. FINDINGS: Indeed at 22 cm, a circumferential benign-appearing stricture was reforming. It was a size passage of the endoscope was not possible. On that basis, balloon dilation was undertaken again to 60-P[place]inean diameter (20 mm) with balloon dilation at 50 psi. This was sequentially performed per manufacture's instructions and showed as expected mucosal disruption and opening of the stricture. The endoscope was unable to be passed to the stomach and duodenum. There were no other findings of note. Electronically Signed By: JESSEE POST MD 01/22/21 1223 PATIENT NAME: NICOLAS MCCORMICK OPERATIVE REPORT DATE OF : 57 REPORT #: [id number] PHYSICIAN: JESSEE POST MD PCP: GABRIELE CRYSTAL MD REPORT IS CONFIDENTIAL AND NOT TO BE RELEASED WITHOUT AUTHORIZATION [facility] [address] [place], [place] [address] Signed DESCRIPTION OF PROCEDURE: The patient was brought to the surgical endoscopy suite and placed in lateral decubitus position, and given lidocaine hypopharyngeal anesthesia. A bite block was placed. An intravenous sedation was induced with propofol infusional technique by the lens and frames prescription clerk. The Olympus video upper endoscope was passed in the hypopharynx. The vocal cords appeared normal and scope was easily passed in the esophagus. At approximately 22 cm from the incisors, an area of somewhat indistinct circumferential stricturing was noted. Although, it appeared that it could easily accommodate the passage of the scope did not allow easy passage and this was more evidenced that her stricture was recurring. On that basis, a balloon dilator (PET balloon dilator) was positioned over the stricture. Sequential inflation of the balloon with saline within the balloon was undertaken initially at 25 psi sequentially up to 50 psi allowing for each dilation stage to have between 2 and 4 minutes of dilation time. At conclusion, the balloon was decompressed and the assembly withdrawn and the balloon carefully withdrawn from the endoscope. The scope was then passed into the esophagus once again. There was a small amount of blood as would be expected following dilation. The scope was easily passed beyond the strictured area into the esophagus, stomach and allowing for examination there showing no other abnormality. The scope was carefully withdrawn to the area of dilation showing mucosal disruption as would be expected. There was no sign of full-thickness disruption. The scope was removed. The patient was taken to the recovery room in good condition. CONCLUDING DIAGNOSIS: Dilation to 60-Papua [place] Guinean (20 mm) at 50 psi. PLAN: She will begin the Carafate slurry 1 g p.o. q.i.d. for 72 hours and she is permitted to have liquids and full liquid food, but should not have anything more than that for at least 72 hours. She will continue with her Prilosec 20 mg p.o. b.i.d. and we will see her back in the office in 6-8 weeks and assess her progress. MD BARRY Velez/FREDDY /[id number] Electronically Signed By: JESSEE POST MD 01/22/21 1223 PATIENT NAME: NICOLAS MCCORMICK OPERATIVE REPORT DATE OF : 57 REPORT #: [id number] PHYSICIAN: JESSEE POST MD PCP: GABRIELE CRYSTAL MD REPORT IS CONFIDENTIAL AND NOT TO BE RELEASED WITHOUT AUTHORIZATION [facility] [address] [place], [place] [address] Signed cc: Dr. Crystal Copies: ~ Electronically Signed By: JESSEE POST MD 01/22/21 1223 PATIENT NAME: NICOLAS MCCORMICK OPERATIVE REPORT DATE OF : 57 REPORT #: [id number] PHYSICIAN: JESSEE POST MD PCP: GABRIELE CRYSTAL MD REPORT IS CONFIDENTIAL AND NOT TO BE RELEASED WITHOUT AUTHORIZATION
== END 2021-01-19 08:30 | disposition home or self-care (01) ==
LOC: OPS 06:20 → DS 06:20 → OPS 07:30
PROVIDERS: ATTEND Surgery
PROC: 0D758ZZ Dilation of Esophagus, Via Natural or Artificial Opening Endoscopic (ICD-10-PCS; principal; 2021-01-19 07:30)
DX: K22.2 Esophageal obstruction (principal); Z79.890 Hormone replacement therapy
CPT/HCPCS: C1726; J2704

== ENCOUNTER 2021-08-24 11:33 | Day surgery (SDC) | payer MEDICARE ==
[~2021-08-24] VITALS: Ht 309.9 cm; Wt 89.0 kg
--- NOTE | 2021-08-24 13:57 | NUR ---
08/24/21 1356 Shakira Montes 1358 PATIENT ARRIVES TO PACU AWAKE, BUT DRWOSY. DENIES NAUSEA. C/O ABD CRAMPING, ENCOURAGED TO PASS GAS. RESP EVEN AND UNLABORED, OXYGEN OFF, ROOM AIR SATS >97$.
--- NOTE | 2021-08-25 14:35 | OR ---
[facility] [address], [place] [address] Signed DATE OF OPERATION: 08/24/2021 SURGEON: Jessee Post MD PREOPERATIVE DIAGNOSES: 1. Positive Cologuard test. 2. Negative family history. 3. Episodic constipation. POSTOPERATIVE DIAGNOSES: 1. Sigmoid diverticulosis. 2. Polyps x3 (small). PROCEDURES: Total colonoscopy to cecum with cold snare polypectomy x1 and cold morcellation polypectomy x2 surgeon. ANESTHESIA: Intravenous sedation, fentanyl 150 mcg and Versed 5 mg, total. INDICATIONS: This 66-year-old white woman is a patient of Dr. Peng Crystal and well known to me from the past, having undergone a complex midesophageal stricture dilation in the past. She is referred for colonoscopy having undergone a Cologuard test, which was positive. She has no symptoms of blood per rectum or diarrhea, but does have constipation from time to time. She has no family history of colon cancer. She is admitted at this time to undergo colonoscopy. She understands the risks of bleeding, infection, and perforation. FINDINGS: The prep was good. Complete colonoscopy was undertaken of the cecum. Complete intubation of the cecum was accomplished. The ileocecal valve and appendiceal orifice were normal. There were diverticula of the sigmoid and left colon. There were three small polyps, one at the hepatic splenic flexure, two in the sigmoid, all excised completely. DESCRIPTION OF PROCEDURE: The patient was brought to the endoscopy suite and placed in lateral decubitus position given intravenous sedation to the point of slurred speech and nystagmus. Digital rectal examination showed extensive hemorrhoidal disease considered grade 4. Electronically Signed By: JESSEE POST MD 08/25/21 1435 PATIENT NAME: NICOLAS MCCORMICK OPERATIVE REPORT DATE OF : 57 REPORT #: [id number] PHYSICIAN: JESSEE POST MD PCP: PENG CRYSTAL MD REPORT IS CONFIDENTIAL AND NOT TO BE RELEASED WITHOUT AUTHORIZATION [facility] [address], [place] [address] Signed An Olympus video colonoscope was passed into the rectum and manipulated throughout the colon. In the sigmoid, diverticula as well as a small polyp was excised with cold snare technique. The scope was further advanced ultimately to the cecum. The ileocecal valve and appendiceal orifice were normal. The scope was withdrawn from that point. Examination throughout showed no sign of abnormality until the splenic flexure where an obvious small adenomatous appearing polyp was noted this was excised with cold morcellation technique. The scope was further withdrawn, another small polyp was seen in the sigmoid. It too was excised with cold morcellation technique. Further withdrawal showed the previous snare excision site and ultimately the rectum was evaluated. Retroflexed view confirmed internal hemorrhoidal changes in conjunction with external hemorrhoidal disease. The scope was removed. The patient was taken to the recovery room in good condition. CONCLUDING DIAGNOSES: 1. Polyps x3 concordant to Cologuard test. 2. Diverticulosis (likely accounting for episodic constipation). PLAN: Recommend high-fiber diet. Repeat colonoscopy in 5 years or sooner if symptoms should develop. She will return to the ongoing care of Dr. Crystal otherwise. MD BARRY Velez/MODL /[id number] Copies: ~ Electronically Signed By: JESSEE POST MD 08/25/21 1435 PATIENT NAME: NICOLAS MCCORMICK OPERATIVE REPORT DATE OF : 57 REPORT #: [id number] PHYSICIAN: JESSEE POST MD PCP: PENG CRYSTAL MD REPORT IS CONFIDENTIAL AND NOT TO BE RELEASED WITHOUT AUTHORIZATION
--- NOTE | 2021-08-25 15:35 | PATH ---
[facility] [address] [place], [place] [address] Signed SPECIMEN(S): A SIGMOID POLYP SPECIMEN(S): B SPLENIC FLEXURE POLYP SPECIMEN(S): C SIGMOID POLYP SPECIMEN SOURCE: A. SIGMOID POLYP B. SPLENIC FLEXURE POLYP C. SIGMOID POLYP CLINICAL HISTORY: Colonoscopy. Positive Cologuard, constipation. DX: Polyps. MICROSCOPIC DESCRIPTION: Histologic sections of all submitted blocks are examined by light microscopy. These findings, together with the gross examination, support the pathologic diagnosis. FINAL PATHOLOGIC DIAGNOSIS: A. Colon, sigmoid, polypectomy: - Colonic mucosa with mild hyperplastic changes. B. Colon, splenic flexure, polypectomy: - Tubular adenoma. C. Colon, sigmoid, polypectomy: - Hyperplastic polyp. BRP:cml:C2NR GROSS DESCRIPTION: Three specimens are received in three containers, labeled "NB." A. The specimen, labeled "NB, 1," and designated on the requisition "sigmoid polyp," is received in formalin and consists of two madrid soft tissue fragments that measure 0.2-0.3 cm in greatest dimension. The specimen is entirely submitted in cassette (A1). B. The specimen, labeled "NB, 2," and designated on the requisition "splenic flexure polyp," is received in formalin and consists of two madrid soft tissue fragments with vegetative matter that measure 0.3 cm in greatest dimension. The specimen is entirely submitted in cassette (B1). C. The specimen, labeled "NB, 3," and designated on the requisition "sigmoid polyp," is received in formalin and consists of two madrid soft tissue fragments that measure 0.2-0.3 cm in greatest dimension. The specimen is entirely submitted in cassette (C1). AT (under the direct supervision of a pathologist) PATIENT NAME: NICOLAS MCCORMICK PATHOLOGY DATE OF : 57 REPORT #: [id number] PHYSICIAN: JCARLOS PATHOLOGY PCP: GABRIELE CRYSTAL MD REPORT IS CONFIDENTIAL AND NOT TO BE RELEASED WITHOUT AUTHORIZATION [facility] [address] [place], [place] [address] Signed The Gross Description was prepared using a voice recognition system. The report was reviewed for accuracy; however, sound-alike word errors, addition and/or deletions may occur. If there is any question about this report, please contact Client Services. PERFORMING LABORATORY: The technical component was performed by [facility] [address] (Senior Fire Protection Engineer: Celestina Vega MD; CLIA# [id number]). [facility], [address] [address] (CLIA# [id number]). Diagnostician: Nando Gimenez MD Pathologist Electronically Signed 08/25/2021 Copies: ~ PATIENT NAME: NICOLAS MCCORMICK PATHOLOGY DATE OF : 57 REPORT #: [id number] PHYSICIAN: JCARLOS ROSENTHAL PCP: GABRIELE CRYSTAL MD REPORT IS CONFIDENTIAL AND NOT TO BE RELEASED WITHOUT AUTHORIZATION
== END 2021-08-24 14:22 | disposition home or self-care (01) ==
LOC: DS 11:33 → OPS 11:33 → DS 13:00 → OPS 14:22
PROVIDERS: ATTEND Surgery
PROC: 0DBL8ZX Excision of Transverse Colon, Via Natural or Artificial Opening Endoscopic, Diagnostic (ICD-10-PCS; 2021-08-24)
PROC: 0DBN8ZX Excision of Sigmoid Colon, Via Natural or Artificial Opening Endoscopic, Diagnostic (ICD-10-PCS; principal; 2021-08-24 13:00)
DX: D12.3 Benign neoplasm of transverse colon (principal); K57.30 Diverticulosis of large intestine without perforation or abscess without bleeding; E66.9 Obesity, unspecified; Z68.36 Body mass index [BMI] 36.0-36.9, adult; K22.2 Esophageal obstruction
CPT/HCPCS: 99153; G0500; J2250; J3010; J7121

== ENCOUNTER 2024-03-26 18:01 | Emergency (ER) | payer OTHER, MEDICARE ==
[~2024-03-26] VITALS: Ht 309.9 cm; Wt 93.6 kg
[2024-03-26] MEDS ORDERED: TRAMADOL HCL50 MG PO (19:26)
[2024-03-26] MEDS ORDERED: TRAMADOL HCL 50 MG HOME.PACK PO ONE (19:30)
[2024-03-26 19:35] VITALS: BP 137/77
== END 2024-03-26 19:35 | disposition home or self-care (01) ==
LOC: ED 18:01
DX: S90.32XA Contusion of left foot, initial encounter (principal); I10 Essential (primary) hypertension; K21.9 Gastro-esophageal reflux disease without esophagitis; W01.190A Fall on same level from slipping, tripping and stumbling with subsequent striking against furniture, initial encounter; Z79.899 Other long term (current) drug therapy; Z87.891 Personal history of nicotine dependence
CPT/HCPCS: 73630; 99283; A9270

== ENCOUNTER 2024-12-05 08:00 | Emergency (ER) | payer MEDICARE ==
[~2024-12-05] VITALS: Ht 157.5 cm; Wt 81.9 kg
[~2024-12-05 08:00] MED LIST changes: +TRAMADOL HCL50 MG PO
[2024-12-05 09:01] VITALS: BP 134/109
== END 2024-12-05 09:01 | disposition home or self-care (01) ==
LOC: ED 08:00
DX: S71.111A Laceration without foreign body, right thigh, initial encounter (principal); I10 Essential (primary) hypertension; E07.9 Disorder of thyroid, unspecified; K21.9 Gastro-esophageal reflux disease without esophagitis; Z87.891 Personal history of nicotine dependence; Z79.890 Hormone replacement therapy; Z79.899 Other long term (current) drug therapy; W26.9XXA Contact with unspecified sharp object(s), initial encounter
CPT/HCPCS: 99282

== ENCOUNTER 2025-03-23 07:44 | Day surgery (SDC) | payer MEDICARE ==
[2025-03-17 09:49] VITALS: BP 119/76
[~2025-03-23] VITALS: Ht 157.5 cm; Wt 77.7 kg
[~2025-03-23 07:44] MED LIST changes: +IBLOOD GLUCOSE TEST STRIP 1 EA TEST VI PRN; +LACTATED RINGER'S 1,000 ML IV SCH; +LIDOCAINE HCL 1% 5 ML SDV INJ ONE; +OZEMPIC1 MG/0.71 SUB-Q
[2025-03-23] MEDS ORDERED: IRON18 M1 PO (08:02)
[2025-03-23 08:08] VITALS: BP 117/70
[2025-03-23 11:25] VITALS: BP 119/79
--- NOTE | 2025-03-23 11:35 | NUR ---
03/23/25 1135 Shelia Herman 1100 PT ARRIVED IN PACU SLEEPY. NO C/O'S. 1110 DR AT BEDSIDE. ALL QUESTIONS ANSWERED. 1120 SITTING AT BEDSIDE. DC INSTRUCTIONS GIVEN. 1131 LEFT VIA W/C.
--- NOTE | 2025-03-24 10:09 | OR ---
[facility] [address] [place], [place] [address] Signed DATE OF OPERATION: 03/23/2025 SURGEON: Jesese Post MD PREOPERATIVE DIAGNOSIS: Recurring dysphagia, known stricture at 22 cm with prior dilation. POSTOPERATIVE DIAGNOSIS: Re-formation of proximal esophageal stricture at 22 cm. PROCEDURE: 1. Upper endoscopy with esophageal dilation of stricture at 22 cm (18 mm dilation at 3 atms). 2. Completion upper endoscopy (esophagogastroduodenoscopy). ANESTHESIA: Intravenous sedation; propofol infusion, Reginaldo Ju, CARGO VESSEL STEWARDESS and lidocaine hypopharyngeal anesthesia. INDICATION: This 69-year-old white woman is a patient of Dr. Michelle Burr and well known to me from the past. She first underwent esophageal dilation for proximal esophageal stricture in 2018 and she has had episodic dilation since that time. Her last dilation was August 04, 2024. She has been maintained on b.i.d. PPI medication and generally is doing well. Her dilation has been as high as 60 mm diameter with 50 psi with a balloon dilator device. She is beginning to get dysphagia once again and I have recommended upper endoscopy and possible dilation. The risk of bleeding, infection, and perforation have been reviewed with her, she understands and wished to proceed. FINDINGS: The area of stricture was not nearly as it was when I first saw her, but certainly enough that passage of the upper endoscope was not possible at the initial intubation. Dilation to 18 mmHg corresponding to 3 atms. It did allow for mucosal fracture and passage of the scope to the stomach and duodenum. Duodenum and stomach were reasonably normal. There was a small amount of retained food in the stomach notably. There was minor flap valve defect. There was no evidence of distal stricture or neoplasm. The dilated area had fractured mucosa as would be expected and bloody, but certainly not perforated. The stricture is at about 22 cm. DESCRIPTION OF PROCEDURE: Electronically Signed By: JESSEE POST MD 03/24/25 1009 PATIENT NAME: NICOLAS MCCORMICK OPERATIVE REPORT DATE OF : 57 REPORT #: [id number] PHYSICIAN: JESSEE POST MD PCP: MICHELLE BURR MD REPORT IS CONFIDENTIAL AND NOT TO BE RELEASED WITHOUT AUTHORIZATION [facility] [address] [place], [place] [address] Signed The patient was brought to the endoscopy suite and placed in the lateral decubitus position after undergoing lidocaine hypopharyngeal anesthesia. A bite block was placed. Intravenous sedation with propofol infusion was undertaken with the combatant diver qualified. An Olympus video upper endoscope was passed in the hypopharynx. The vocal cords were visualized as normal. Scope was advanced to the esophagus. At the proximal esophagus in the region of about 22 cm, the stricture which looked benign and reasonably symmetric was identified. Passage through this area was not forthcoming. Various maneuvers were made, although a smaller endoscope could be used to pass through it was deemed unnecessary. A [employer] balloon dilator with syringe has been ordered. It was then passed through the channel of the scope and positioned across the stricture. Careful manipulation of the balloon to coincide with the strictured area was undertaken. Dilation was undertaken with fluid within the syringe to an guru of 3, corresponding to an 18 mm dilation level. This was maintained for two full minutes by the clock. Some blood was noted around the edge of the balloon and the balloon was deflated and examined showing fracture of the esophageal mucosa as would be expected and desired. The entire unit was explanted and the balloon was then removed from the channel of the scope and the scope reintroduced. Passage of the scope into the esophagus showed the bloody area which was easily irrigated showing no sign of complication of full-thickness perforation in any way. The scope was advanced through the strictured area without impediment. The distal esophagus, stomach and duodenum were evaluated showing no sign of abnormality. Biopsies were not obtained. The scope was withdrawn to the dilated area once again confirming good break up of the stricture and no sign of perforation. The scope was removed and the patient was taken to the recovery room in good condition. CONCLUDING DIAGNOSIS: Successful balloon dilation to 3 atms, 18 mm diameter of proximal esophageal stricture at 22 cm. PLAN: We will initiate Carafate slurry treatment t.i.d. and she will continue her PPI medication 20 mg b.i.d. I will see her back in the office in two months and assess her clinical progress. MD BARRY Velez/ELOINAL /[id number] Electronically Signed By: JESSEE POST MD 03/24/25 1009 PATIENT NAME: NICOLAS MCCORMICK OPERATIVE REPORT DATE OF : 57 REPORT #: [id number] PHYSICIAN: JESSEE POST MD PCP: MICHELLE BURR MD REPORT IS CONFIDENTIAL AND NOT TO BE RELEASED WITHOUT AUTHORIZATION [address] [address] Signed cc: Dr. Michelle Burr Copies: ~ Electronically Signed By: JESSEE POST MD 03/24/25 1009 PATIENT NAME: NICOLAS MCCORMICK OPERATIVE REPORT DATE OF : 57 REPORT #: [id number] PHYSICIAN: JESSEE POST MD PCP: MICHELLE BURR MD REPORT IS CONFIDENTIAL AND NOT TO BE RELEASED WITHOUT AUTHORIZATION
== END 2025-03-23 11:31 | disposition home or self-care (01) ==
LOC: OPS 07:44 → DS 07:44 → OPS 08:50 → DS 13:00
PROVIDERS: ATTEND Surgery
PROC: 0D718ZZ Dilation of Upper Esophagus, Via Natural or Artificial Opening Endoscopic (ICD-10-PCS; principal; 2025-03-23 10:20)
DX: K22.2 Esophageal obstruction (principal)
CPT/HCPCS: 00731; C1726; J2704